=== PATIENT | female | born 1965 | race Caucasian/White ===

== ENCOUNTER → 2016-03-30 | Outpatient (CLI) | payer BC | LOC: BHSO 12:52 | DX: F31.81 Bipolar II disorder (principal) ==

== ENCOUNTER → 2016-04-24 | Outpatient (CLI) | payer BC | LOC: MC.RAD 14:14 | DX: Z12.31 Encounter for screening mammogram for malignant neoplasm of breast (principal) ==

== ENCOUNTER → 2016-05-25 | Outpatient (CLI) | payer BC | LOC: BHSO 13:20 | DX: F31.74 Bipolar disorder, in full remission, most recent episode manic (principal) ==

== ENCOUNTER → 2016-08-29 | Outpatient (CLI) | payer BC | LOC: BHSO 12:59 | DX: F31.73 Bipolar disorder, in partial remission, most recent episode manic (principal) ==

== ENCOUNTER → 2016-11-16 | Outpatient (CLI) | payer BC | LOC: BHSO 14:18 | DX: F31.73 Bipolar disorder, in partial remission, most recent episode manic (principal) ==

== ENCOUNTER → 2017-03-20 | Outpatient (CLI) | payer BC | LOC: BHSO 13:49 | DX: F33.1 Major depressive disorder, recurrent, moderate (principal) | CPT/HCPCS: G0463 ==

== ENCOUNTER → 2017-03-22 | Outpatient (CLI) | payer BC | LOC: BHSO 09:11 | DX: F31.32 Bipolar disorder, current episode depressed, moderate (principal) ==

== ENCOUNTER → 2017-04-30 | Outpatient (CLI) | payer BC | LOC: BHSO 13:04 | DX: F32.1 Major depressive disorder, single episode, moderate (principal) ==

== ENCOUNTER → 2017-05-07 | Outpatient (CLI) | payer BC | LOC: BHSO 13:02 | DX: F31.31 Bipolar disorder, current episode depressed, mild (principal) ==

== ENCOUNTER → 2017-05-21 | Outpatient (CLI) | payer BC | LOC: BHSO 14:04 | DX: F31.11 Bipolar disorder, current episode manic without psychotic features, mild (principal) ==

== ENCOUNTER → 2017-06-20 | Outpatient (CLI) | payer BC | LOC: BHSO 13:21 | DX: F43.10 Post-traumatic stress disorder, unspecified (principal) | CPT/HCPCS: G0463 ==

== ENCOUNTER → 2017-07-10 | Outpatient (CLI) | payer BC | LOC: MC.RAD 10:20 | DX: Z12.31 Encounter for screening mammogram for malignant neoplasm of breast (principal) ==

== ENCOUNTER → 2017-07-18 | Outpatient (CLI) | payer BC | LOC: BHSO 09:55 | DX: F31.11 Bipolar disorder, current episode manic without psychotic features, mild (principal) ==

== ENCOUNTER → 2017-08-07 | Outpatient (CLI) | payer BC | LOC: BHSO 16:18 | DX: F31.31 Bipolar disorder, current episode depressed, mild (principal) ==

== ENCOUNTER → 2017-08-22 | Outpatient (CLI) | payer BC | LOC: COL.RAD 08:21 | DX: K51.40 Inflammatory polyps of colon without complications (principal); T17.308A Unspecified foreign body in larynx causing other injury, initial encounter | CPT/HCPCS: A9541 ==

== ENCOUNTER 2017-08-23 09:51 | Outpatient (RCR) | payer BC | END 2017-11-21 | disposition home or self-care (01) | LOC: WSST | DX: R09.89 Other specified symptoms and signs involving the circulatory and respiratory systems (principal); R13.12 Dysphagia, oropharyngeal phase; D12.6 Benign neoplasm of colon, unspecified ==

== ENCOUNTER → 2017-08-29 | Outpatient (CLI) | payer BC | LOC: BHSO 09:56 | DX: F41.1 Generalized anxiety disorder (principal) ==

== ENCOUNTER → 2017-08-30 | Outpatient (CLI) | payer BC | LOC: COL.RAD 15:00 | DX: D12.6 Benign neoplasm of colon, unspecified (principal); T17.308A Unspecified foreign body in larynx causing other injury, initial encounter ==

== ENCOUNTER → 2017-10-25 | Outpatient (CLI) | payer BC | LOC: BHSO 10:46 | DX: F41.1 Generalized anxiety disorder (principal) | CPT/HCPCS: G0463 ==

== ENCOUNTER → 2017-11-12 | Outpatient (CLI) | payer BC | LOC: BHSO 09:58 | DX: F33.1 Major depressive disorder, recurrent, moderate (principal) ==

== ENCOUNTER → 2017-12-05 | Outpatient (CLI) | payer BC | LOC: BHSO 10:00 | DX: F41.1 Generalized anxiety disorder (principal) ==

== ENCOUNTER → 2018-02-11 | Outpatient (CLI) | payer BC | LOC: BHSO 11:38 | DX: F43.10 Post-traumatic stress disorder, unspecified (principal) | CPT/HCPCS: G0463 ==

== ENCOUNTER → 2018-03-04 | Outpatient (CLI) | payer BC | LOC: BHSO 13:02 | DX: F31.81 Bipolar II disorder (principal) ==

== ENCOUNTER → 2018-03-18 | Outpatient (CLI) | payer BC | LOC: BHSO 09:20 | DX: F31.75 Bipolar disorder, in partial remission, most recent episode depressed (principal) | CPT/HCPCS: G0463 ==

== ENCOUNTER → 2018-03-21 | Outpatient (CLI) | payer BC | LOC: BHSO 13:02 | DX: F31.11 Bipolar disorder, current episode manic without psychotic features, mild (principal) ==

== ENCOUNTER → 2018-04-02 | Outpatient (CLI) | payer BC | LOC: BHSO 15:07 | DX: F31.11 Bipolar disorder, current episode manic without psychotic features, mild (principal) ==

== ENCOUNTER 2018-04-09 10:17 | Emergency (ER) | payer BC ==
[~2018-04-09] VITALS: Ht 165.1 cm; Wt 63.6 kg
[2018-04-09 11:08] LABS: COLLECTION METHOD CLEAN CATCH
[2018-04-09 11:12] LABS: BASO % 0.5 % (0.0-2.0); EOS % 0.2 % (0-4.0); GRAN # 4.5 (1.4-6.5); GRAN % 69.2 % (42.2-75.2); HEMOGLOBIN 12.3 g/dl (12.5-16.0); LYMPH # 1.4 (1.2-3.4); LYMPH % 21.9 % (20.0-51.0); MEAN CELL VOLUME 89 fl (80.0-100.0); MEAN CORPUSCULAR HEMOGLOBIN 30 pg (27.0-31.0); MEAN CORPUSCULAR HGB CONC 33 g/dl (33.0-37.0); MEAN PLATELET VOLUME 9.4 fl (7.4-10.4); MONO # 0.5 (0.1-0.6); PLATELET COUNT 215 K/mm3 (130-400); RED BLOOD COUNT 4.17 M/mm3 (4.10-5.30); REDCELL DISTRIBUTION WIDTH-CV 12.6 % (11.5-14.5)
[2018-04-09] MEDS ORDERED: LAMICTAL150 MG PO (11:13)
[2018-04-09] MEDS ORDERED: BRINTELLIX10 PO (11:14)
[2018-04-09] MEDS ORDERED: ESTRACE0.5 MG PO (11:14)
[2018-04-09 11:26] LABS: ALANINE AMINOTRANSFERASE 24 U/L (9-52); ALBUMIN 4.2 gm/dL (3.5-5.0); ALKALINE PHOSPHATASE 84 U/L (50-136); ANION GAP 8 mmol/L (7-16); AST,SGOT 25 U/L (15-37); BILIRUBIN,TOTAL 0.4 mg/dL (0.0-1.0); BLOOD UREA NITROGEN 13 mg/dL (7-17); C-REACTIVE PROTEIN 2.7 mg/dL (0.0-0.9); CALCIUM 9.1 mg/dL (8.4-10.2); CARBON DIOXIDE 26 mmol/L (22-30); CHLORIDE 101 mmol/L (98-107); CREATININE, serum 0.87 mg/dL (0.52-1.25); GLUCOSE 113 mg/dL (74-106); LIPASE 77 U/L (23-300); POTASSIUM 3.8 mmol/L (3.4-5.0); SODIUM 134 mmol/L (137-145); TOTAL PROTEIN 7.6 gm/dL (6.4-8.2)
[2018-04-09 11:28] LABS: MUCOUS Present /lpf; PH 7 (5-8); SQUAMOUS EPITHELIAL 0-2 /hpf; URINE APPEARANCE Clear; URINE BACTERIA Occasional /hpf; URINE BILIRUBIN Negative (NEGATIVE); URINE BLOOD 1+ (NEGATIVE); URINE COLOR Straw; URINE GLUCOSE Negative (NEGATIVE); URINE KETONE Negative (NEGATIVE); URINE LEUKOCYTE ESTERASE Trace (NEGATIVE); URINE NITRATE Negative (NEGATIVE); URINE PROTEIN(semi-quant) Negative (NEGATIVE); URINE RBC 0-2 /hpf; URINE UROBILINOGEN Negative (NEGATIVE)
[2018-04-09 11:35] LABS: TROPONIN-I < 0.012 ng/mL (0.000-0.035)
[2018-04-09] MEDS ORDERED: CEFTIN500 MG PO (12:40)
[2018-04-09] MEDS ORDERED: ZOFRAN ODT4 MG PO (12:40)
[2018-04-09] MEDS ORDERED: NORCO 325 MG-51 TAB PO (12:40)
[2018-04-09 13:20] VITALS: BP 134/87; PULSE 84; TEMP 98.1
== END 2018-04-09 13:42 | disposition home or self-care (01) ==
LOC: COL.ER 10:17
PROVIDERS: Physician Assistant
DX: N12 Tubulo-interstitial nephritis, not specified as acute or chronic (principal); F32.9 Major depressive disorder, single episode, unspecified; Z90.710 Acquired absence of both cervix and uterus; Z98.890 Other specified postprocedural states; Z90.89 Acquired absence of other organs
CPT/HCPCS: J0696; J1885; J2405; J7030; Q9967

== ENCOUNTER → 2018-04-24 | Outpatient (CLI) | payer BC ==
[~2018-04-24] MED LIST: BRINTELLIX10 PO; CEFTIN500 MG PO; ESTRACE0.5 MG PO; LAMICTAL150 MG PO; NORCO 325 MG-51 TAB PO; ZOFRAN ODT4 MG PO
== END ==
LOC: BHSO 14:01
DX: F31.81 Bipolar II disorder (principal)

== ENCOUNTER → 2018-05-13 | Outpatient (CLI) | payer BC | LOC: BHSO 11:40 | DX: F43.11 Post-traumatic stress disorder, acute (principal) | CPT/HCPCS: G0463 ==

== ENCOUNTER → 2018-07-09 | Outpatient (CLI) | payer BC | LOC: BHSO 14:39 | DX: F43.10 Post-traumatic stress disorder, unspecified (principal) | CPT/HCPCS: G0463 ==

== ENCOUNTER → 2018-07-17 | Outpatient (CLI) | payer BC | LOC: BHSO 12:55 | DX: F33.1 Major depressive disorder, recurrent, moderate (principal) ==

== ENCOUNTER → 2018-08-22 | Outpatient (CLI) | payer BC | LOC: MC.RAD 09:30 | DX: Z12.31 Encounter for screening mammogram for malignant neoplasm of breast (principal) ==

== ENCOUNTER → 2018-09-05 | Outpatient (CLI) | payer BC | LOC: BHSO 08:42 | DX: F43.10 Post-traumatic stress disorder, unspecified (principal) | CPT/HCPCS: G0463 ==

== ENCOUNTER → 2019-01-06 | Outpatient (CLI) | payer BC | LOC: BHSO 11:05 | DX: F31.81 Bipolar II disorder (principal) ==

== ENCOUNTER → 2019-01-20 | Outpatient (CLI) | payer BC | LOC: BHSO 09:57 | DX: F43.10 Post-traumatic stress disorder, unspecified (principal) | CPT/HCPCS: G0463 ==

== ENCOUNTER → 2019-02-18 | Outpatient (CLI) | payer BC | LOC: BHSO 15:59 | DX: F31.11 Bipolar disorder, current episode manic without psychotic features, mild (principal) ==

== ENCOUNTER → 2019-07-28 | Outpatient (CLI) | payer BC | LOC: BHSO 09:06 | DX: F43.10 Post-traumatic stress disorder, unspecified (principal) | CPT/HCPCS: G0463 ==

== ENCOUNTER → 2019-09-05 | Outpatient (CLI) | payer BC | LOC: MC.RAD 09:01 | DX: Z12.31 Encounter for screening mammogram for malignant neoplasm of breast (principal) ==

== ENCOUNTER → 2020-10-13 | Outpatient (CLI) | payer BC | LOC: MC.RAD 14:03 | DX: Z12.31 Encounter for screening mammogram for malignant neoplasm of breast (principal) ==

== ENCOUNTER → 2021-12-21 | Outpatient (CLI) | payer BC | LOC: MC.RAD 13:44 | DX: Z12.31 Encounter for screening mammogram for malignant neoplasm of breast (principal) ==